=== PATIENT | male | born 1995 | race African-American/Black ===

== ENCOUNTER 2016-11-08 13:29 | Emergency (ER) | payer MEDICAID, OTHER ==
[~2016-11-08] VITALS: Ht 203.2 cm; Wt 97.5 kg
[~2016-11-08 13:29] MED LIST: NKM
[2016-11-08] MEDS ORDERED: IBUPROFEN600 MG ORAL (14:52)
[2016-11-08 15:05] VITALS: BP 112/70
--- NOTE | 2016-11-08 15:36 | Diagnostic Imaging Report ---
Indication: PAIN Technique: 3 views of the right knee Comparison: None Findings:Normal alignment. No acute fractures. No dislocations. Joint spaces are preserved Impression:Negative
--- NOTE | 2016-11-09 | Emergency Room Report ---
History of Present Illness General Chief Complaint: Lower Extremity Injury Source: Patient (NORMAN CALI) Present Illness HPI The patient is a 21-year-old male presenting with left knee pain which began yesterday during basketball practice. The patient states that he jumped and experienced pain when he landed on his feet which was localized to the left knee. The patient describes the pain as an 8/10 dull ache. The patient denies prior injury to the knee denies any other symptoms including numbness or tingling. (NORMAN CALI) Allergies: Coded Allergies: No Known Allergies (Unverified , 05/31/16) Patient History Past Medical History: see triage record Pertinent Family History: none Reviewed Nursing Documentation: PMH: Agreed, PSxH: Agreed (NORMAN CALI) Nursing Documentation-PMH Past Medical History: No Stated History (NORMAN CALI) Review of Systems All Other Systems: negative except mentioned in HPI (NORMAN CALI) Physical Exam Vital Signs Date Time Temp Pulse Resp B/P Pulse Ox O2 Delivery O2 Flow Rate FiO2 11/08/16 14:00 100.0 75 16 129/76 99 Room Air Sp02 EP Interpretation: reviewed, normal General Appearance: no apparent distress, alert, GCS 15, non-toxic Head: normocephalic, atraumatic Eyes: bilateral eye PERRL, bilateral eye normal inspection ENT: hearing grossly normal, normal pharynx, no angioedema, normal voice Musculoskeletal: normal inspection, back normal, digits/nails normal, gait/ station normal, normal range of motion, no calf tenderness, tender - TTP over posterior knee Neurologic: alert, oriented x3, responsive, motor strength/tone normal, sensory intact, speech normal Psychiatric: judgement/insight normal, memory normal, mood/affect normal, no suicidal/homicidal ideation Reflexes: 3+ bicep (R), 3+ bicep (L), 3+ tricep (R), 3+ tricep (L), 3+ knee (R) , 3+ knee (L) Skin: normal color, no rash, warm/dry, well hydrated (NORMAN CALI) Procedures Splinting Splinting : Consent: Verbal Location: L knee Pre-Made Type: ANDREW wrap Pre-Proc Neuro Vasc Exam: normal Post-Proc Neuro Vasc Exam: normal Patient Tolerated: Well Complications: None (NORMAN CALI) Medical Decision Making PA Attestation Dr. Kraus is my supervising physician. Patient management was discussed with my supervising physician (NORMAN CALI) Diagnostic Impression: Primary Impression: Sprain, knee ER Course The patient is a 21-year-old male presenting with left knee pain Ddx considered include but not limited to sprain/strain, fracture, contusion Physical exam: No apparent distress Left knee: No edema. No erythema. Full active range of motion.SILT. There is tenderness to palpation over the posterior knee. No laxity X-ray of the knee unremarkable. Andrew wrap is placed and the patient is given crutches. The patient will followup with primary care doctor. Patient told that he may need MRI if symptoms continue. RICE instructions given (NORMAN CALI) ER Course Agree with PA-obtained, HPI, PE, Assessment/PLAN and their interpretation of imaging and rhythm strip. (RUSTAM KRAUS M.D.) Other X-Ray Diagnostic Results Other X-Ray Diagnostic Results : X-Ray Ordered: L knee Date: Nov 08, 2016 EP Interpretation: Yes Findings: no fractures, no dislocation, no soft tissue swelling Number of Views: 3 PA Scribe Text I am acting as scribe for my supervising physician. My supervising physician's interpretation of the L knee xrays are there are no fractures, dislocations or soft tissue swelling. (NORMAN CALI) Last Vital Signs Date Time Temp Pulse Resp B/P Pulse Ox O2 Delivery O2 Flow Rate FiO2 11/08/16 15:05 100.0 70 16 112/70 99 Room Air (NORMAN CALI) Disposition: HOME, SELF-CARE Condition: Improved Scripts Ibuprofen* (MOTRIN*) 600 Mg Tablet 600 MG ORAL Q8H Y for For Pain, #30 TAB 0 Refills Prov: NORMAN CALI 11/08/16 Referrals: [facility]ERR[facility] (PCP) Patient Instructions: Knee Sprain Additional Instructions: I discussed my findings with the patient. All questions and concerns have been answered. Treatment and medication compliance have been addressed. I advised the patient that they need to follow up with PMD in 3-5 days. Return to ED if pain remains or worsens, numbness or tingling occurs, new rash is noticed, fever is noticed, or if needed for any reason. Patient verbalized understanding of discharge instructions. NORMAN CALI Nov 08, 2016 23:59 RUSTAM KRAUS M.D. Nov 11, 2016 10:02
== END 2016-11-08 15:05 | disposition home or self-care (01) ==
LOC: EMR 14:20
DX: S83.92XA Sprain of unspecified site of left knee, initial encounter (principal); X58.XXXA Exposure to other specified factors, initial encounter; Y93.67 Activity, basketball; Y92.9 Unspecified place or not applicable
CPT/HCPCS: 99283